=== PATIENT | male | born 1960 | race Caucasian/White ===

== ENCOUNTER 2020-12-17 16:31 | Outpatient (CLI) | payer OTHER | END 2020-12-17 23:59 | disposition home or self-care (01) | LOC: CVU 16:31 | PROVIDERS: ATTEND Surgery Vascular Surgery | DX: I70.261 Atherosclerosis of native arteries of extremities with gangrene, right leg (principal); I70.221 Atherosclerosis of native arteries of extremities with rest pain, right leg; F17.200 Nicotine dependence, unspecified, uncomplicated | CPT/HCPCS: 93306; 93356 ==

== ENCOUNTER → 2021-01-20 | Outpatient (CLI) | payer OTHER ==
[~2021-01-20] MED LIST: REGADENOSON 0.4 MG/5 ML SYRINGE ONE
== END | disposition home or self-care (01) ==
LOC: CFH 07:57
PROVIDERS: ATTEND Internal Medicine Cardiovascular Disease
DX: R06.02 Shortness of breath (principal)
CPT/HCPCS: 78452; 93017; A9502; J2785